=== PATIENT | female | born 1985 | race Native Hawaiian/Other Pacific Islander ===

== ENCOUNTER 2017-02-28 12:55 | Inpatient (IN) | payer MEDICAID, SELFPAY ==
[2017-02-28] MEDS ORDERED: Lactated Ringer's 1,000 ML IV SCH (17:18)
[2017-02-28 17:46] VITALS: BP 112/63; PULSE 93; RESP 18; TEMP 99.3
[2017-02-28 18:21] LABS: BASO % 0.4 % (0.0-2.0); EOS % 0.3 % (0.0-4.0); HEMATOCRIT 38.4 % (34.0-47.0); LYMPH % 17.6 % (20.0-40.0); MEAN CELL VOLUME 90.2 fl (81.0-99.0); MEAN CORPUSCULAR HEMOGLOBIN 29.1 pg (27.0-31.0); MEAN CORPUSCULAR HGB CONC 32.3 g/dL (33.0-37.0); MEAN PLATELET VOLUME 11.7 fl (7.2-11.7); MONO # 0.5 K/uL (0.0-0.8); MONO % 4.7 % (0.0-10.0); NEUT # 8.5 K/uL (1.8-7.0); NRBC % 0.1 % (0.0-0.0); RED CELL DISTRIBUTION WIDTH 15.3 % (11.5-14.5); WHITE BLOOD COUNT 11.1 K/uL (4.8-10.8)
--- NOTE | 2017-02-28 21:09 | OBADHP ---
Datetime: 02/28/2017 14:04 Admit Comment, IP Provider: 32 YO F SABx2 @ 36.6 presents to the [facility] from [facility] for ruling out PROM, b/c DEION was noted to be 5.1. - PT otherwise seems comfortable. Has been noticing some increased fluid leaking after she urinate s for the last couple of days. HAs been having irregular CTX. - Denies any VB POBHX: 2 SAB PMH: none PSH: none Allergies FH: Developmental delays run n the family Med: PNV,Iron, Asprin, folic acid S/H: Denies smoking, alcohol intake HIV: neg Rubella: Immune HbSag: neg G/C: neg A/P: 32 YO F @ 36.6 w/ DEION of 5.1 No evidence of srom Pt d/w dr. connell. He recommends admission for induction. will place cervidel Extremities - PN: Normal Abdomen - PN: Normal Lungs - PN: Normal Heart - PN: Normal Neurologic - PN: Normal HEENT - PN: Normal General - PN: Normal NICHD Accel Fetus A IP Provider: 15X15 FHR Category Provider Fetus A: Category I Genitourinary Exam: Normal IP Adm Impression: , intrauterine IP Admit Plan: Admit to unit Datetime: 02/28/2017 13:12 Pelvic Type - PN: Adequate Thyroid - PN: Normal FHR - Baseline A Provider: 130-140 Membranes, Provider: Intact Contraction Comments Provider: irreg not appreciated by pt Nitrazine Provider: Negative Vital Signs Provider: Reviewed; Within Normal Limits IP Chief Complaint: Suspected ruptured membranes NICHD Variability Prov Fetus A: Moderate 6-25bpm NICHD Decel Fetus A IP Provider: None Dilatation, Provider: 0 Effacement, Provider: 0 Station, Provider: -4 EGA AdmitDate IP: 36.6
[2017-03-01] MEDS ORDERED: Nalbuphine 20 mg/ml Inj (1 ml) IVP ONE (08:30)
--- NOTE | 2017-03-01 11:00 | OBPN ---
Datetime: 03/01/2017 07:45 IP Progress Impression: Reassuring heart rate; Reactive non-stress test IP Informed Consent Obtain: Vaginal Delivery; Induction of Labor; Risks, Benefits and Alternatives D iscussed IP Progress Plan: Induction; Cervical Ripening Pool Provider: Negative Contraction Comments Provider: + FHR - Baseline A Provider: 140 Presentation-Admit: Vertex IP Progress Note Comment: She was admitted for Oligohydramnios from [facility] 36+w...Today 37w. She feels occ CTX. no VB. +FM A; IUP at 37w [place] No GBS status PLAN: Discussion about IOL, medications, pain management...will eval and change to Cytotec. HEPLOCK, allow to ambulate; regular diet NICHD Accel Fetus A IP Provider: 15X15 FHR Category Provider Fetus A: Category I NICHD Variability Prov Fetus A: Moderate 6-25bpm NICHD Decel Fetus A IP Provider: None Datetime: 02/28/2017 13:12 Nitrazine Provider: Negative Membranes, Provider: Intact Vital Signs Provider: Reviewed; Within Normal Limits Dilatation, Provider: 0 Effacement, Provider: 0 Station, Provider: -4
[2017-03-01] MEDS ORDERED: Oxytocin 20 units in LR 2,000 ML IV ONE (19:17)
[2017-03-01] MEDS ORDERED: ceFAZolin 1 GM in Sodium Chloride 0.9% 100 ML IVPB ONE ×2 (19:30→19:35)
[2017-03-01] MEDS ORDERED: Morphine 1 mg/ml preservative-free Inj(Duramorph) ONE (19:33)
[2017-03-01] MEDS ORDERED: ePHEDrine 50 mg/ml Inj ONE (19:33)
[2017-03-01] MEDS ORDERED: Phenylephrine 10 mg/ml Inj ONE (19:33)
[2017-03-01] MEDS: Lactated Ringer's 1,000 ML IV SCH ×2 (19:34→21:30)
--- NOTE | 2017-03-01 19:37 | OBPN ---
Datetime: 03/01/2017 19:25 IP Informed Consent Obtain: Section Delivery; Risks, Benefits and Alternatives Discussed IP Progress Plan: Anesthesia consult FHR - Baseline A Provider: 135 IP Fetus A Comments: noted decel to 70-80's recovreed IP Progress Note Comment: Notified for prolonged decel down to 70-80's for 10m...SHe was eating, sea patria. She was placed in left lateral position with O2/IVF running. A: [facility]: deana suazo pt about condition, delivery by C/S, with its risks/complications. Informed cosent obtained. Her and her 's questoins answered NICHD Accel Fetus A IP Provider: 15X15 FHR Category Provider Fetus A: Category II NICHD Variability Prov Fetus A: Moderate 6-25bpm Dilatation, Provider: FT Effacement, Provider: long Station, Provider: high NICHD Decel Fetus A IP Provider: Prolonged
[2017-03-01] MEDS ORDERED: Oxycodone/Acetaminophen 5/325 mg Tab PO PRN ×4 (20:51→23:26)
[2017-03-01] MEDS ORDERED: DiphenhydrAMINE 50 mg/ml Inj IVP PRN ×2 (21:07→23:26)
[2017-03-01] MEDS ORDERED: Simethicone 80 mg Chewtab PO SCH (22:00)
[2017-03-02 06:52] LABS: HEMATOCRIT 34.3 % (34.0-47.0); MEAN CELL VOLUME 89.8 fl (81.0-99.0); MEAN CORPUSCULAR HEMOGLOBIN 29.1 pg (27.0-31.0); MEAN CORPUSCULAR HGB CONC 32.4 g/dL (33.0-37.0); RED CELL DISTRIBUTION WIDTH 14.8 % (11.5-14.5); WHITE BLOOD COUNT 13.3 K/uL (4.8-10.8)
--- NOTE | 2017-03-02 07:27 | OBDS ---
DELIVERY PERSONNEL Delivery Doctor: Brittny Valera DO Oil Transport Driver: Yoselyn Mendez RN Anesthesiologist: Liana MATERNAL INFORMATION Delivery Anesthesia: Spinal Medications in Delivery: Pitocin Estimated Blood Loss (ml): 800 Placenta Cultured: Yes Maternal Complications: None Provider Comments: Pre Op Dx: IUP at 37w prolonged deceleration remote from delivery Post Op Dx same/two nuchal cords (loose) Procedure: Primary LTCS via Pfannenstiel incision Surgeon Dr Valera Asst Dr Duggan Anesth: Dr Munzo Anesth: spinal Findings: live infant female delivered from [facility] pres scant fluid and two loose nuchal cords noted 9,9 Placenta delivered intact manually Ovaries and tubes WNL grossly She remained stable All equipment sponges needles accounted for ebl 800cc LABOR SUMMARY EDC: 03/22/2017 00:00 No. Babies in Womb: 1 Attempted: No Labor Anesthesia: spinal LABOR INFORMATION Reason for Induction: Oligohydramnios Cervical Ripening Agents: Cervidil; Cytotec @ Other Ripening Agents: Cervidil placed by Dr. Ocampo Oxytocin: N/A Group B Beta Strep: N/A Antibiotics # of Doses: 1 Antibiotics Time of Last Dose: 1924 Steroids Given: None Reason Steroids Not Administered: Not Applicable MEMBRANES Membranes Rupture Method: Artificial Rupture of Membranes: 03/01/2017 20:19 Length of Rupture (hrs): 0.00 Amniotic Fluid Color: Clear Amniotic Fluid Amount: Scant Amniotic Fluid Odor: Normal STAGES OF LABOR Stage 3 hrs: 0 Stage 3 min: 2 CSECTION DELIVERY Primary Indication: Prolonged Deceleration Phase Other Primary Indication: prolonged decel remote from delivery CSection Urgency: Emergency CSection Incidence: Primary Labor: No Labor Elective: N/A CSection Incision: Lower Uterine Transverse Uterine Closure: Double-layer closure BABY A INFORMATION Infant Delivery Date/Time: 03/01/2017 20:19 Method of Delivery: Born in Route : No : N/A Forceps: N/A Vacuum Extraction: N/A Shoulder Dystocia : No SHOULDER DYSTOCIA BABY A Infant Delivery Date/Time: 03/01/2017 20:19 PRESENTATION/POSITION BABY A Presentation: Cephalic PLACENTA INFORMATION BABY A Placenta Delivery Time : 03/01/2017 20:21 Placenta Method of Delivery: Manual Removal Placenta Status: Delivered SCORES BABY A Heart Rate 1 min: >100 bpm Resp Effort 1 min: Good Cry Reflex Irritability 1 min: Cough or Sneeze or Pulls Away Muscle Tone 1 min: Active Motion Color 1 min: Body [place], Extremities Blue Resuscitation Effort 1 min: Tactile Stimulation SCORE 1 MIN: 9 Heart Rate 5 min: >100 bpm Resp Effort 5 min: Good Cry Reflex Irritability 5 min: Cough or Sneeze or Pulls Away Muscle Tone 5 min: Active Motion Color 5 min: Body [place], Extremities Blue Resuscitation Effort 5 min: N/A SCORE 5 MIN: 9 INFORMATION BABY A Gestational Age at Delivery: 37.0 Gestational Status: Term Infant Outcome : Liveborn Infant Condition : Stable Sex: Female IDENTIFICATION/MEDS BABY A ID Band Number: [id number] ID Band Location: Left Leg; Left Arm WEIGHT/LENGTH BABY A Infant Birthweight (gms): 2570 Infant Weight (lb): 5 Weight (oz): 11 Infant Length Inches: 18.50 Infant Length cms: 47.0 CORD INFORMATION BABY A No. Cord Vessels: 3 Nuchal Cord : Around Neck x2, Loose True Knot: NA Infant Cord pH Baby Arterial: NA Cord pH Baby Venous: NA Cord Blood Taken: Yes Infant Suction: Mouth; Nose ASSESSMENT BABY A Infant Complications: None Physical Findings at Delivery: Within Normal Limits Respirations: Appears Normal Nurse Obgyn/ALS Called : No Care By: Grayson Burris RN Transferred To: [facility]
--- NOTE | 2017-03-02 07:28 | OBDS ---
DELIVERY PERSONNEL Delivery Doctor: Brittny Valera DO Paper Sales Manager: Yoselyn Mendez RN Anesthesiologist: Liana MATERNAL INFORMATION Delivery Anesthesia: Spinal Medications in Delivery: Pitocin Estimated Blood Loss (ml): 800 Placenta Cultured: Yes Maternal Complications: None Provider Comments: Pre Op Dx: IUP at 37w prolonged deceleration remote from delivery Post Op Dx same/two nuchal cords (loose) Procedure: Primary LTCS via Pfannenstiel incision Surgeon Dr Valera Asshuber Duggan Anesth: Dr Munoz Anesth: spinal Findings: live infant female delivered from [facility] pres scant fluid and two loose nuchal cords noted 9,9 Placenta delivered intact manually Ovaries and tubes WNL grossly She remained stable All equipment sponges needles accounted for ebl 800cc LABOR SUMMARY EDC: 03/22/2017 00:00 No. Babies in Womb: 1 Attempted: No Labor Anesthesia: spinal LABOR INFORMATION Reason for Induction: Oligohydramnios Cervical Ripening Agents: Cervidil; Cytotec @ Cervical Ripening Agents: Cytotec @ 50mcg p.o. Cervical Ripening Agents: Cervidil Other Ripening Agents: Cervidil placed by Dr. Ocampo Oxytocin: N/A Group B Beta Strep: N/A Antibiotics # of Doses: 1 Antibiotics Time of Last Dose: 1924 Steroids Given: None Reason Steroids Not Administered: Not Applicable MEMBRANES Membranes Rupture Method: Artificial Rupture of Membranes: 03/01/2017 20:19 Length of Rupture (hrs): 0.00 Amniotic Fluid Color: Clear Amniotic Fluid Amount: Scant Amniotic Fluid Odor: Normal STAGES OF LABOR Stage 3 hrs: 0 Stage 3 min: 2 CSECTION DELIVERY Primary Indication: Prolonged Deceleration Phase Other Primary Indication: prolonged decel remote from delivery CSection Urgency: Emergency CSection Incidence: Primary Labor: No Labor Elective: N/A CSection Incision: Lower Uterine Transverse Uterine Closure: Double-layer closure BABY A INFORMATION Infant Delivery Date/Time: 03/01/2017 20:19 Method of Delivery: Born in Route : No : N/A Forceps: N/A Vacuum Extraction: N/A Shoulder Dystocia : No SHOULDER DYSTOCIA BABY A Delivery Date/Time: 03/01/2017 20:19 PRESENTATION/POSITION BABY A Presentation: Cephalic PLACENTA INFORMATION BABY A Placenta Delivery Time : 03/01/2017 20:21 Placenta Method of Delivery: Manual Removal Placenta Status: Delivered SCORES BABY A Heart Rate 1 min: >100 bpm Resp Effort 1 min: Good Cry Reflex Irritability 1 min: Cough or Sneeze or Pulls Away Muscle Tone 1 min: Active Motion Color 1 min: Body [place], Extremities Blue Resuscitation Effort 1 min: Tactile Stimulation SCORE 1 MIN: 9 Heart Rate 5 min: >100 bpm Resp Effort 5 min: Good Cry Reflex Irritability 5 min: Cough or Sneeze or Pulls Away Muscle Tone 5 min: Active Motion Color 5 min: Body [place], Extremities Blue Resuscitation Effort 5 min: N/A SCORE 5 MIN: 9 INFORMATION BABY A Gestational Age at Delivery: 37.0 Gestational Status: Term Infant Outcome : Liveborn Infant Condition : Stable Sex: Female IDENTIFICATION/MEDS BABY A ID Band Number: [id number] ID Band Location: Left Leg; Left Arm WEIGHT/LENGTH BABY A Infant Birthweight (gms): 2570 Infant Weight (lb): 5 Weight (oz): 11 Infant Length Inches: 18.50 Length cms: 47.0 CORD INFORMATION BABY A No. Cord Vessels: 3 Nuchal Cord : Around Neck x2, Loose True Knot: NA Infant Cord pH Baby Arterial: NA Infant Cord pH Baby Venous: NA Cord Blood Taken: Yes Infant Suction: Mouth; Nose ASSESSMENT BABY A Complications: None Physical Findings at Delivery: Within Normal Limits Respirations: Appears Normal Sign Designer/ALS Called : No Infant Care By: Grayson Burris RN Transferred To: [facility]
[2017-03-02] MEDS: Simethicone 80 mg Chewtab PO SCH ×3 (07:29→22:52)
--- NOTE | 2017-03-02 11:20 | OBPPN ---
Datetime: 03/02/2017 05:24 PP Pain Prov: Within normal limits PP Nausea Prov: Denies PP Flatus Prov: No PP BM Prov: No PP Breasts Prov: Normal PP Heart Prov: Normal PP Lungs Prov: Normal PP Abdomen/Uterus Prov: Normal PP Lochia Prov: Normal PP Vulva/Perineum Prov: Normal PP CVA Tenderness Prov: Normal PP Extremities Prov: Normal PP C/S Incision Prov: Normal PP Progress Prov: Normal PP Comments Phys Exam Prov: Uterus: firm level umbilicus incision: dressing intact PP Impression Prov: Normal progression PP Plan Prov: Continue present management PP Progress Note Prov: 32 y/o A2 seen and examined at bedside. Patient s/p c section 9 h ago. Patient reports mild pelvic pain controlled w/ pain meds. no ambulating yet Breastfeding/bottle feedi ng w/o difficulty at this moment.Has not tried liquids yet. Lochia is less than menses in volume. F oley present w/ no blood noted 20 ml. Reports no flatus, no BM yet , but + BS. Denies fevers, chi lls, n/v/d, CP/SOB, lightheadedness and calf pain. Assessment: 32 y/o A2 s/p C/section on 03/01/2017 @ 20:09 pm tolerating pain w/ medicatio n, tolerating oral intake, adequate urine output, doing well on POD1. Plan: Ibuprofen 600 mg 1 tab Q6h PO prn for mild pain. -Percocet 5/325 mg 1-2 tabs PO Q6h prn for mod/severe pain. Encourage breast feeding and ambulation. Titus Ocampo PGY-1 The patient was seen with the resident and I agree with the note. Ambulate. analgesia, anticipate discharge in am Vital Signs Provider PP: Reviewed; Within Normal Limits
[2017-03-03] MEDS ORDERED: Simethicone 80 mg Chewtab ONE (09:30)
[2017-03-03] MEDS: Simethicone 80 mg Chewtab PO SCH ×3 (10:00→22:23)
[2017-03-03] MEDS ORDERED: Simethicone 80 mg Chewtab PO ONE ×2 (10:00→22:00)
[2017-03-03] MEDS ORDERED: Oxycodone/Acetaminophen 5/325 mg Tab PO ONE (14:00)
--- NOTE | 2017-03-03 15:05 | OP ---
PROCEDURE DATE: 03/01/2017 PREOPERATIVE DIAGNOSES: 1. Intrauterine at 37 weeks' gestation. 2. Prolonged deceleration remote from delivery. POSTOPERATIVE DIAGNOSES: 1. Intrauterine at 37 weeks' gestation. 2. Two loose nuchal cords noted. Scant fluid. PROCEDURE: Primary low transverse section via Pfannenstiel incision. SURGEON: Brennen Valera DO. CLINICAL ACCOUNT SPECIALIST: Dr. Jesus Duggan. (Dr. Duggan is a board-certified WATER REUSE PROGRAM MANAGER physician who happened to be in labor and delivery with his own patient. He was available for this Emergency. His assistance wa s vital in necessary. He was present from incision time to delivery of the infant to the closure of the skin). ANESTHESIOLOGIST: Dr. Gaines. ANESTHESIA: Spinal. OPERATIVE FINDINGS: Live infant female delivered from a cephalic presentation, scant fluid noted. T wo loose nuchal cords noted upon delivery. scores of 9 and 9 given at 1 and 5 minutes respecti vely. Placenta was delivered intact manually. Ovaries and tubes appeared to be within normal limits grossly. She remained hemodynamically stable throughout the procedure. All equipment, sponges, and needles were accounted for. ESTIMATED BLOOD LOSS: 800 mL. PROCEDURE: The patient was brought to the operating room. She was given spinal anesthesia by Dr. Maryjo felipe. She was placed in supine position. Compression boots were placed on both lower extremities. A Boles catheter was placed and draining clear urine. She was draped and prepped in the usual steril e manner. Once adequate anesthesia was obtained, a Pfannenstiel incision was made using a scalpel. Incision was then taken down to underlying fascia using electrocautery. Fascia was nicked in midline and extended bilaterally. Inferior aspect of the fascia was grasped using 2 Michael clamps, tented u p, and the rectus muscle was both bluntly and sharply dissected with electrocautery. The same was do ne with the superior aspect of the fascia. In the midline superiorly, the rectus muscle was separate d bluntly. Peritoneum was identified and tented up using 2 Ellie clamps. This was incised using Met zenbaum scissors and then extended superiorly and inferiorly with direct visualization of the bladder and intestines. Bladder blade was then inserted. Bladder flap was created. This was done by incis ing peritoneum on the uterus and extending bilaterally using Metzenbaum scissors. A bladder flap was created digitally. Bladder blade was then inserted behind the bladder flap. A low transverse incis ion was made using a scalpel. Upon entering the uterus, incision was then extended bilaterally using bandage scissors. Rupture of membranes was performed and scant fluid noted. Infant's head was deli dorothea as atraumatically as possible. Two loose nuchal cords were noted and reduced successfully. Upon delivery of the head, the remainder of the was then delivered as atraumatically as possib le. was crying spontaneously, was bulb-suctioned nasopharyngeally. Cord was clamped and cut. Infant was handed to the tool shaper set up operator in attendance. Cord bloods were obtained. Placenta was deli dorothea intact manually. Uterus was exteriorized. Good contract of the uterus was noted. The uterus was cleared of debris and clots. Ovaries and tubes appeared to be within normal limits grossly. First layer of the uterus was closed using 0 Vicryl suture in interlocking fashion. Second layer of the uterus was closed using 0 Vicryl suture imbricating the first layer. Good hemostasis assured. C opious irrigation was performed in the posterior cul-de-sac. Uterus was placed back into peritoneal cavity. Incision line was reinspected and noted to have good hemostasis. All equipment was removed and accounted for. 0 Vicryl suture was used to approximate the peritoneum in a running fashion. Rectus muscle was noted to have good hemostasis and approximated with 0 Vicryl suture x 3. 0 Vicryl suture was then used to approximate the fascial layer in a running fashion. I rrigation was performed. Subcuticular layer was noted to have good hemostasis. 2-0 plain suture was used to approximate the subcuticular layer x 3. 3-0 Vicryl suture was used to approximate the skin. Dermabond applied. Steri-Strips and pressure bandage placed. All equipment was removed and accoun patria for. She was then transferred to the recovery room in stable condition. Brennne Valera DO cc: 135 TT: 03/03/2017 12:28:18 danet
--- NOTE | 2017-03-04 09:05 | OBPPN ---
Datetime: 03/04/2017 05:20 PP Pain Prov: Within normal limits PP Nausea Prov: Denies PP Flatus Prov: Yes PP BM Prov: No PP Heart Prov: Normal PP Lungs Prov: Normal PP Abdomen/Uterus Prov: Normal PP Vulva/Perineum Prov: Normal PP Extremities Prov: Normal PP C/S Incision Prov: Normal PP Progress Prov: Normal PP Comments Phys Exam Prov: Fundus firm and below umbilicus Incision site: C/D/I. No erythema or discharge noted. PP Impression Prov: Normal progression PP Plan Prov: Continue present management; Discharge PP Progress Note Prov: 32 y/o A2 seen and examined at bedside. Patient s/p c section POD3. Pat ient reports mild pelvic pain controlled w/ pain meds. Ambulating without difficulty. Breast and tray le feeding. Tolerating PO intake well. Lochia is less than menses in volume. Reports passing gas bu t no BM yet , but + BS. Denies fevers, chills, n/v/d, CP/SOB, lightheadedness and calf pain. Assessment: 32 y/o A2 s/p C/section on 03/01/2017 @ 20:09 pm tolerating pain w/ medicatio n, tolerating oral intake, adequate urine output, doing well on POD3. Plan: Ibuprofen 600 mg 1 tab Q6h PO prn for mild pain. -Percocet 5/325 mg 1-2 tabs PO Q6h prn for mod/severe pain. Encourage breast feeding and ambulation. Leonard Murphy PGY1 OB Hospitalist oncall...Pt seen on rounds 8am. Agree with PGY1 note MAHNDO discharge home IP PP Procedures: None Vital Signs Provider PP: Reviewed; Within Normal Limits Datetime: 03/03/2017 06:19 PP Lochia Prov: Normal
--- NOTE | 2017-03-04 09:05 | OBDCSUM ---
Datetime: 03/04/2017 05:23 Discharged to, Provider: Home Follow up at, Provider: OBGYN Disch Instr Activity: Normal activity Disch Instr Diet: Regular Discharge Instructions, Provider: Routine instructions given Discharge Diagnosis, Provider: Term Delivered Discharge Time: 03/04/2017 09:00 Follow up in weeks, Provider: 1 week for wound check Disch Referrals: None Disch Activity Restrictions: No sexual activity; Nothing in vagina - [place], tampons, douche Discharge Comment, Provider: 32 y/o A2 had a scheduled C Section Delivered baby boy on 03/01/17 @ 8:45 8lb 9oz , : 9,9 Patient doing well, stable for discharge. Prescription given for pain Encourage PNV 1 tab PO once daily Ibuprofen 600 mg 1 tab PO Q6h prn for mild to moderate pain Percocet 5/325 mg 1 tab PO Q6 PRN for moderate to severe pain Ambulate w/ caution, nothing in vagina, no heavy lifting, if excessive bleeding or fever without r elief from Ibuprofen go to ED F/U with OBGYN for wound check in 1 week and 2-3 days for with pulmonary function technician. Leonard Murphy MD Staff Home Therapy Rn PGY1 OB Hospitalist zena...Pt seen on rounds 8am. Agree with PGY1 note MA[facility]NDO discharge home Discharge Diagnosis Prov Other: C section due to prolonged decel phase Contraception after Delivery: Undecided
[2017-03-04] MEDS: Simethicone 80 mg Chewtab PO SCH (12:19)
== END 2017-03-04 12:30 | disposition home or self-care (01) | DRG 766 ==
LOC: H.EROB2 12:55 → H.L&D 17:18 → H.OB/GYN 03-01 23:56
PROVIDERS: ADMIT Obstetrics & Gynecology; ATTEND Obstetrics & Gynecology
PROC: 4A1HXCZ Monitoring of Products of Conception, Cardiac Rate, External Approach (ICD-10-PCS; 2017-02-28)
PROC: 10D00Z1 Extraction of Products of Conception, Low, Open Approach (ICD-10-PCS; principal; 2017-03-01)
DX: O60.14X0 Preterm labor third trimester with preterm delivery third trimester, not applicable or unspecified (principal); O69.81X0 Labor and delivery complicated by cord around neck, without compression, not applicable or unspecified; Z37.0 Single live birth; Z3A.36 36 weeks gestation of pregnancy